=== PATIENT | male | born 1950 | race Caucasian/White ===

== ENCOUNTER 2025-01-23 21:40 | Emergency (ER) | payer MEDICARE, OTHER, SELFPAY ==
[2025-01-23 21:49] VITALS: BP 262/120; PULSE 90; TEMP 36.4; O2SAT 98; BMI 29.8
--- NOTE | 2025-01-23 22:02 | ECG_ITS ---
[facility] Test Date: 2025-01-23 Pat Name: AMBROSIO CARR Department: Room: - Gender: Male Staff Development Manager: : 1950 Requested By: 1030 Order Number: [id number] Reading MD: CRISTOPHER LEDBETTER M.D. Measurements Intervals [place] Rate: 59 P: 90 TX: 188 QRS: -52 QRSD: 108 T: 19 QT: 404 QTc: 403 Interpretive Statements 1100 Sinus rhythm 4068 Nonspecific [place] abnormality 7200 Abnormal left axis deviation 9130 Abnormal ECG No previous ECG available for comparison Electronically Signed On 01-24-2025 8:25:14 EDT by CRISTOPHER LEDBETTER M.D.
--- NOTE | 2025-01-23 22:03 | ED_ITS ---
HPI HPI - General Adult General Chief complaint: Abdominal Pain Stated complaint: BACK PAIN Time Seen by Provider: 01/23/25 21:57 Source: patient Mode of arrival: walk-in Limitations: no limitations History of Present Illness HPI narrative: 74-year-old male presents to the emergency department for right flank pain. It started about 3 hours ago after he got done eating dinner. There is been no injury or unusual activity. It does not seem to radiate but he states it feels like it wants to move towards the front. He has never had a kidney stone but his is concerned he might have 1. No dysuria or hematuria or left-sided back pain. He does not complain of abdominal pain. He has been nauseous but no vomiting. Related Data Home Medications ?Medication ?Instructions ?Recorded ?Confirmed atorvastatin 10 mg tablet 10 mg PO QPM 01/23/25 01/23/25 lisinopril 40 mg tablet 40 mg PO DAILY 01/23/25 01/23/25 venlafaxine 75 mg capsule,extended 75 mg PO DAILY 01/23/25 01/23/25 release 24 hr (Effexor XR) Previous Rx's ?Medication ?Instructions ?Recorded hydrocodone 5 mg-acetaminophen 325 1 tab PO Q6H PRN pain 3 days #10 01/23/25 mg tablet tabs ondansetron 4 mg disintegrating 4 mg PO Q6H PRN nausea and 01/23/25 tablet vomiting #20 tabs tamsulosin 0.4 mg capsule (Flomax) 0.4 mg PO DAILY #7 caps 01/23/25 Allergies Allergy/AdvReac Type Severity Reaction Status Date / Time No Known Drug Allergies Allergy Verified 01/23/25 21:56 Opioid HPI Opioid Management Most Recent Opioid Data: Last Pain Scale 7 01/23/25 22:28 01/23/25 Review of Systems ROS Narrative A ten point review of systems is negative except as noted above. PFSH PFSH Social History Little interest or pleasure in doing things: not at all Feeling down, depressed, or hopeless: not at all Exam Narrative Exam Narrative: Nurses note and vital signs reviewed and patient is not hypoxic. General: The patient appears uncomfortable and is in no apparent respiratory distress. Skin: Warm, dry, no pallor noted. There is no rash noted. Head: Normocephalic, atraumatic Eye: Normal conjunctiva, no drainage Ears, Nose, Mouth, and Throat: oral mucosa is moist. Nares patent. Cardiovascular: Regular Rate and Rhythm Respiratory: Patient is in no distress, no accessory muscle use, lungs are clear to auscultation, no wheezing, rales or rhonchi Back: non-tender, no CVA tenderness bilaterally to percussion. No bruise or rash. GI: Soft and nontender, no masses Musculoskeletal: No joint swelling. Neurological: A&O, normal speech Psychiatric: Cooperative Constitutional Vital Signs, click to edit/add: Last Vital Signs Temp 97.5 F L 01/23/25 21:49 Pulse 90 01/23/25 21:49 Resp 18 01/23/25 21:49 BP 220/102 H 01/23/25 22:53 Pulse Ox 98 01/23/25 21:49 O2 Del Method Room Air 01/23/25 21:49 Course Vital Signs Vital signs: Vital Signs Temperature 97.5 F L 01/23/25 21:49 Pulse Rate 90 01/23/25 21:49 Respiratory Rate 18 01/23/25 21:49 Blood Pressure 262/120 H 01/23/25 21:49 Pulse Oximetry 98 01/23/25 21:49 Oxygen Delivery Method Room Air 01/23/25 21:49 Temperature 97.5 F L 01/23/25 21:49 Pulse Rate 90 01/23/25 21:49 Respiratory Rate 18 01/23/25 21:49 Blood Pressure 220/102 H 01/23/25 22:53 Pulse Oximetry 98 01/23/25 21:49 Oxygen Delivery Method Room Air 01/23/25 21:49 Medical Decision Making MDM Narrative Medical decision making narrative: 5.9 mm stone is noted in the right distal ureter per radiologist. He is feeling much better now and is able to be discharged home on Flomax and [place] and Zofran. He has seen Dr. Mcdonough in the past and will follow-up with him. He was sent home with a urine strainer and a specimen cup as well. Treatment diagnosis and follow-up were discussed with the patient. Differential Diagnosis Differential Diagnosis: Kidney stone, UTI, AAA, muscle strain Lab Data Lab results reviewed: Yes I reviewed the patient's lab results Labs: Lab Results 01/23/25 01/23/25 Range/Units 22:03 22:05 WBC 10.4 (4.0-11.0) 10^3/uL RBC 4.81 (4.70-6.10) 10^6/uL Hgb 13.9 L (14.0-18.0) g/dL Hct 42.2 (42.0-54.0) % MCV 87.7 (80.0-94.0) fL MCH 28.9 (25.9-34.0) pg MCHC 32.9 (29.9-35.2) g/dL RDW 14.3 (11.0-15.0) % Plt Count 280 (150-450) 10^3/uL MPV 9.7 (9.5-13.5) fL Neut % (Auto) 71.7 (43.0-75.0) % Lymph % (Auto) 17.6 L (20.5-60.0) % [place] % (Auto) 7.7 (1.7-12.0) % Eos % (Auto) 2.2 (0.9-7.0) % Baso % (Auto) 0.5 (0.2-2.0) % Neut # (Auto) 7.4 H (1.4-6.5) 10^3/uL Lymph # (Auto) 1.8 (1.2-3.8) 10^3/uL [place] # (Auto) 0.8 (0.3-0.8) 10^3/uL Eos # (Auto) 0.2 (0.0-0.7) 10^3/uL Baso # (Auto) 0.1 (0.0-0.1) 10^3/uL Abs Immat Gran (auto) 0.03 (0.00-0.03) 10^3/uL Imm/Tot Granulo (auto) 0.3 (0.0-0.5) % Sodium 141 (136-145) mmol/L Potassium 3.6 (3.5-5.1) mmol/L Chloride 105 (98-107) mmol/L Carbon Dioxide 26.0 (21.0-32.0) mmol/L Anion Gap 13.6 BUN 23.0 H (7.0-18.0) mg/dL Creatinine 1.17 (0.70-1.30) mg/dL Est GFR ( Amer) >60 (>=60 mL/min/1.73m^2) Est GFR (Non-Af Amer) >60 (>=60 mL/min/1.73m^2) BUN/Creatinine Ratio 19.7 Glucose 125 H (74-106) mg/dL Calcium 9.3 (8.5-10.1) mg/dL Urine Color Lt. yellow (YELLOW) Urine Clarity Clear (CLEAR) Urine pH 6.0 (5.0-9.0) Ur Specific [place] 1.020 (1.005-1.025) Urine Protein Trace (NEG/TRACE) mg/dL Urine Glucose (UA) Negative (NEGATIVE) mg/dL Urine Ketones Negative (NEGATIVE) mg/dL Urine Occult Blood Moderate A (NEGATIVE) Urine Nitrite Negative (NEGATIVE) Urine Bilirubin Negative (NEGATIVE) Urine Urobilinogen 0.2 (0.2-1.0) EU/dL Ur Leukocyte Esterase Negative (NEGATIVE) Urine RBC 5-10 A (0-2) #/HPF Urine WBC None seen (NONE SEEN) #/HPF Ur Squamous Epith Cells Rare (NONE/RARE) #/LPF Urine Crystals None seen (None Seen) #/HPF Urine Bacteria None seen (NONE SEEN) #/HPF Urine Casts None seen (NONE SEEN) #/LPF Urine Mucus None seen (NONE SEEN) Ur Culture Indicated? No Imaging Data CT scan - abdomen: Radiologist's impression: 5.9 mm stone in the distal right ureter with associated partial right renal obstruction, mild right hydronephrosis ECG Data Attestation: I personally reviewed and interpreted this ECG as follows: (EKG on my interpretation shows normal sinus rhythm with a rate of 59 and no acute change.) Discharge Plan Discharge Chief Complaint: Abdominal Pain Clinical Impression: Kidney stone Patient Disposition: Home, Self-Care Time of Disposition Decision: 23:40 Condition: Good Mode of Transportation: Private Vehicle Prescriptions / Home Meds: New hydrocodone-acetaminophen 5-325 mg tablet 1 tab PO Q6H PRN (Reason: pain) 3 Days Qty: 10 0RF tamsulosin [Flomax] 0.4 mg capsule 0.4 mg PO DAILY Qty: 7 0RF ondansetron 4 mg tablet,disintegrating 4 mg PO Q6H PRN (Reason: nausea and vomiting) Qty: 20 0RF No Action lisinopril 40 mg tablet 40 mg PO DAILY atorvastatin 10 mg tablet 10 mg PO QPM venlafaxine [Effexor XR] 75 mg capsule,extended release 24hr 75 mg PO DAILY Print Language: Indonesian Instructions: Kidney Stones (ED), How to Strain Your Urine (ED) Referrals: Physician,Non-Staff, [Physician] - 1 week Job Mcdonough MD [Physician] -
[2025-01-23 22:12] LABS: Basophils Absolute Auto 0.1 10^3/uL (0.0-0.1); Basophils Percent Auto 0.5 % (0.2-2.0); Eosinophils Absolute Auto 0.2 10^3/uL (0.0-0.7); Eosinophils Percent Auto 2.2 % (0.9-7.0); Hematocrit 42.2 % (42.0-54.0); Hemoglobin 13.9 g/dL (14.0-18.0); Immature Granulocytes Abs Auto 0.03 10^3/uL (0.00-0.03); Immature Granulocytes Pct Auto 0.3 % (0.0-0.5); Lymphocytes Absolute Auto 1.8 10^3/uL (1.2-3.8); Lymphocytes Percent Auto 17.6 % (20.5-60.0); Mean Corpuscular HGB Conc 32.9 g/dL (29.9-35.2); Mean Corpuscular Hemoglobin 28.9 pg (25.9-34.0); Mean Corpuscular Volume 87.7 fL (80.0-94.0); Mean Platelet Volume 9.7 fL (9.5-13.5); Monocytes Absolute Auto 0.8 10^3/uL (0.3-0.8); Monocytes Percent Auto 7.7 % (1.7-12.0); Neutrophils Absolute Auto 7.4 10^3/uL (1.4-6.5); Neutrophils Percent Auto 71.7 % (43.0-75.0); Platelet Count 280 10^3/uL (150-450); Red Blood Count 4.81 10^6/uL (4.70-6.10); Red Cell Distribution Width 14.3 % (11.0-15.0); White Blood Count 10.4 10^3/uL (4.0-11.0)
[2025-01-23] MEDS: ONDANSETRON PF 4 MG/2 ML VIAL IV (22:12)
[2025-01-23] MEDS: MORPHINE SULFATE 4 MG/ML VIAL IV (22:12)
[2025-01-23 22:15] LABS: Bilirubin Urine NEGATIVE (NEGATIVE); Blood Urine MODERATE (NEGATIVE); Clarity Urine CLEAR (CLEAR); Color Urine LT. YELLOW (YELLOW); Glucose Urine UA NEGATIVE (NEGATIVE); Ketones Urine NEGATIVE (NEGATIVE); Leukocyte Esterase Urine NEGATIVE (NEGATIVE); Nitrite Urine NEGATIVE (NEGATIVE); Protein Urine TRACE mg/dL (NEG/TRACE); Urobilinogen Urine 0.2 EU/dL (0.2-1.0)
[2025-01-23 22:21] LABS: Bacteria Urine NONE SEEN #/HPF (NONE SEEN); Cast Seen? NONE SEEN #/LPF (NONE SEEN); Crystals Seen? None Seen #/HPF (None Seen); Mucus Urine NONE SEEN (NONE SEEN); Squamous Epithelial Cell Urine RARE #/LPF (NONE/RARE); Urine Culture Indicated NO; WBC Urine NONE SEEN #/HPF (NONE SEEN)
[2025-01-23 22:21] LABS: Anion Gap 13.6; BUN Creatinine Ratio 19.7; Calcium 9.3 mg/dL (8.5-10.1); Chloride 105 mmol/L (98-107); Estimated GFR (African America >60 (>=60 mL/min/1.73m^2); Estimated GFR (Non-African Ame >60 (>=60 mL/min/1.73m^2); Glucose 125 mg/dL (74-106); Potassium 3.6 mmol/L (3.5-5.1); Sodium 141 mmol/L (136-145)
[2025-01-23 22:53] VITALS: BP 220/102
[2025-01-23] MEDS: KETOROLAC TROMETHAMINE 30 MG/ML VIAL IVP (23:09)
[2025-01-23] MEDS: HYDROCODONE/ACET 5-325 MG TABLET 1 TAB PO (23:48)
[2025-01-23] MEDS: TAMSULOSIN HCL 0.4 MG CAPSULE PO (23:48)
[2025-01-23 23:52] VITALS: BP 176/98
== END 2025-01-24 00:01 | disposition home or self-care (01) ==
PROVIDERS: Emergency Provider Emergency Medicine; PCP Family Medicine
DX: N13.2 Hydronephrosis with renal and ureteral calculous obstruction (principal)
CPT/HCPCS: 36415; 74176; 80048; 81001; 85025; 93005; 96374; 96375; 99285; J1885; J2270; J2405